=== PATIENT | male | born 1955 | race Caucasian/White ===

== ENCOUNTER 2023-10-27 09:06 | Emergency (ER) | payer OTHER, SELFPAY ==
[2023-10-27 09:27] VITALS: BP 186/103; PULSE 79; RESP 16; TEMP 36.6; O2SAT 98
--- NOTE | 2023-10-27 09:44 | ED.CHESTPAIN ---
HPI - Chest Pain General Chief Complaint: Chest Pain Stated Complaint: Chest/Back Pain Source: patient, RN notes reviewed and old records reviewed Mode of arrival: ambulatory Limitations: no limitations History of Present Illness HPI narrative: 68-year-old male patient presents to [facility] with complaints of chest pain radiating into left arm and back that started at 2:00 a.m. this morning. Patient states pain woke him from sleep. Patient states has history of high blood pressure denies any other cardiac issues. patient states is unsure if he has shortness of breath or dizziness states pain was too bad to notice anything else. Patient states pain is only in back and shoulder at this time. Related Data Home Medications Medication Instructions Recorded Confirmed clonidine HCl 0.1 mg tablet 0.1 mg PO DIRECTED 10/27/23 10/27/23 diltiazem HCl 240 mg capsule,24 240 mg PO DAILY 10/27/23 10/27/23 hr,extended release doxazosin 2 mg tablet 2 mg PO DIRECTED 10/27/23 10/27/23 famotidine 40 mg tablet 40 mg PO DAILY 10/27/23 10/27/23 fluoxetine 20 mg tablet 20 mg PO BID 10/27/23 10/27/23 lamotrigine 100 mg tablet 100 mg PO DAILY 10/27/23 10/27/23 lisinopril 20 1 tablet PO DAILY 10/27/23 10/27/23 mg-hydrochlorothiazide 12.5 mg tablet Allergies Allergy/AdvReac Type Severity Reaction Status Date / Time No Known Allergies Allergy Verified 10/27/23 10:16 Review of Systems Constitutional: Constitutional: Reports no additional constitutional complaints, Denies body ache(s), Denies chills, Denies fatigue, Denies fever(s) and Denies headache(s) Eyes: Eyes: Reports no additional eye complaints and Denies blurry vision ENT: Reports system reviewed and no additional complaints, except as documented, Denies vertigo, Denies dizziness, Denies ear discharge, Denies otalgia, Denies facial pain, Denies headache(s), Denies nasal congestion, Denies nasal discharge, Denies sinus pain, Denies sinus pressure and Denies sore throat Cardiovascular: Cardiovascular: Reports no additional cardiovascular complaints, Reports chest pain, Reports chest pain at rest, Denies rapid heart rate, Reports radiating jaw, neck or arm pain and Denies dyspnea Respiratory: Respiratory: Reports no additional respiratory complaints, Denies chest congestion, Denies cough, Denies pain on inspiration, Denies pain with cough and Denies dyspnea Gastrointestinal: Gastrointestinal: Denies abdominal pain, Denies diarrhea, Denies nausea and Denies vomiting Musculoskeletal: Musculoskeletal: Reports back pain Integumentary/Breasts: Skin/Breast: Denies rash Neurologic: Reports system reviewed and no additional complaints, except as documented, Denies vertigo, Denies dizziness and Denies headache(s) Endocrine: Endocrine: Denies fatigue PMFSH Past Medical History Medical History Hypertension Comments At the time of my signature, I reviewed and agree with the nursing past medical, surgical, social, and family history. There is no relevant family history pertinent to the patient complaint. Exam Const: General: cooperative, no acute distress and well nourished Nutritional Appearance: well nourished Orientation/consciousness: patient oriented x3 Limitations: no limitations HENMT: Head: normal to inspection and normocephalic Ears: external ears normal Face/Nose/Sinus: normal facial exam Face and sinus: normal facial exam Mouth: Yes Normal oral and palatal mucosa present, Yes oropharynx normal and Yes moist mucous membranes Eyes: General: appearance normal, both eyes and all related structures Sclera: sclerae normal Pupils: Equal, round and reactive pupils present Chest: Chest palpation & inspection: normal inspection of the chest Resp: Effort & Inspection: normal respiratory effort, able to speak in complete sentences, no audible wheezes, no cough, no respiratory distress and no retractions Auscultation:
--- NOTE | 2023-10-27 09:48 | ECG_ITS ---
Measurements Intervals [place] Rate: 79 P: 42 AK: 163 QRS: 31 QRSD: 87 T: 22 QT: 378 QTc: 435 Interpretive Statements SINUS RHYTHM FREQUENT VENTRICULAR PREMATURE COMPLEXES NONSPECIFIC ST-T WAVE ABNORMALITY- DIFFUSE LEADS BASELINE ARTIFACT- I, II, III, AVR, AVL, AVF BORDERLINE ECG NO PREVIOUS ECG AVAILABLE FOR COMPARISON Electronically Signed On 10-27-2023 16:35:16 CDT by Boubacar King D.O.
== END 2023-10-27 09:55 | disposition short-term general hospital (02) ==
PROVIDERS: Emergency Provider Registered Nurse
DX: R07.9 Chest pain, unspecified (principal); I10 Essential (primary) hypertension
CPT/HCPCS: 93005; 99215; G0463

== ENCOUNTER 2023-10-27 10:22 | Observation (INO) | payer OTHER, SELFPAY ==
[2023-10-27] VITALS (21 sets, daily range): BP systolic 101–197; BP diastolic 69–121; PULSE 61–88; RESP 12–21; TEMP 36.3–36.8; O2SAT 96–100; BMI 32.5
--- NOTE | ~2023-10-27 | XR_ITS ---
XR chest 1V portable DATE: 10/27/2023 11:09 INDICATION: Mid to left-sided chest pain, left shoulder pain. History of hypertension. TECHNIQUE: Upright portable AP chest on 10/27/2023 1101 hours COMPARISON: None FINDINGS: Heart size appears within normal range. Mild aortic unfolding. No pulmonary consolidation, pleural effusion or pneumothorax. Mild thoracic levoscoliosis. Osteopenia. IMPRESSION: No active cardiopulmonary disease is detected on this limited single portable view Reviewed, dictated and finalized at location A. IMPRESSION: No active cardiopulmonary disease is detected on this limited singl e portable view
--- NOTE | 2023-10-27 10:33 | ECG_ITS ---
Measurements Intervals [place] Rate: 71 P: 59 LA: 167 QRS: 40 QRSD: 90 T: 32 QT: 384 QTc: 418 Interpretive Statements SINUS RHYTHM NONSPECIFIC ST-T WAVE ABNORMALITY- ANTEROLAT/INF LEADS BORDERLINE ECG COMPARED TO ECG 10/27/2023 08:36:51 NO SIGNIFICANT CHANGES Electronically Signed On 10-27-2023 16:43:03 CDT by Boubacar King D.O.
--- NOTE | 2023-10-27 10:36 | ED.CHESTPAIN ---
HPI - Chest Pain General Chief Complaint: Chest Pain <Sara Lopez PA-C - Last Filed: 10/27/23 13:14> Stated Complaint: shoulder/chest <Sara Lopez PA-C - Last Filed: 10/27/23 13:14> Time Seen by Provider: 10/27/23 10:26 <Sara Lopez PA-C - Last Filed: 10/27/23 13:14> History of Present Illness HPI narrative: 68-year-old male with history of hypertension presents to the emergency department via EMS from a local urgent care for chest pain that started at 2:00 a.m. this morning. Patient states the chest pain woke him up from his sleep and radiates to his left shoulder, Left arm and back near his left scapula. He describes the pain is deep and sharp. States that earlier the pain was improved when he flexed his neck and put his chin on his chest, however that is no longer improving his pain. Otherwise denies aggravating or alleviating factors. He reports associated nausea but denies associated dyspnea, diaphoresis or vomiting. states he took naproxen and a muscle relaxer at home without improvement. Denies lower extremity edema, cough or congestion. States he is currently not having pain in his chest but is still having pain in his shoulder and arm. He denies injury or trauma to these areas. He denies prior history of cardiac disease or stroke, denies family history of cardiac disease or stroke. Reports former smoking history, he has not smoked in 10 years. Denies prior history of VTE. He received 4 mg of morphine en route to the emergency department but has not received aspirin. <Sara Lopez PA-C - Last Filed: 10/27/23 13:14> Related Data Home Medications: Home Medications Medication Instructions Recorded Confirmed clonidine HCl 0.1 mg tablet 0.1 mg PO DIRECTED PRN 10/27/23 10/27/23 Hypertension diltiazem HCl 240 mg capsule,24 240 mg PO DAILY 10/27/23 10/27/23 hr,extended release doxazosin 2 mg tablet 2 mg PO DAILY 10/27/23 10/27/23 famotidine 40 mg tablet 40 mg PO DAILY 10/27/23 10/27/23 fluoxetine 20 mg tablet 40 mg PO DAILY 10/27/23 10/27/23 lamotrigine 100 mg tablet 100 mg PO DAILY 10/27/23 10/27/23 lisinopril 20 1 tablet PO DAILY 10/27/23 10/27/23 mg-hydrochlorothiazide 12.5 mg tablet <Sara Lopez PA-C - Last Filed: 10/27/23 13:14> Allergies/Adverse Reactions: Allergies Allergy/AdvReac Type Severity Reaction Status Date / Time No Known Allergies Allergy Verified 10/27/23 15:30 <Sara Lopez PA-C - Last Filed: 10/27/23 13:14> Review of Systems Review of Systems: CONSTITUTIONAL: Denies fever, chills, or sweats. EYES: Denies visual changes, redness, or discharge. ENT: Denies rhinorrhea, congestion, sore throat, or otalgia. CARDIOVASCULAR: See HPI RESPIRATORY: Denies cough or dyspnea. GASTROINTESTINAL: Denies abdominal pain, nausea, vomiting, or diarrhea. GENITOURINARY: Denies dysuria or hematuria. SKIN: Denies rash or itching. MUSCULOSKELETAL: Denies back pain, joint pain, or myalgia. NEUROLOGIC: Denies headache, numbness, or weakness. PSYCHIATRIC: Denies anxiety or depression. <Sara Lopez PA-C - Last Filed: 10/27/23 13:14> [facility] Past Medical History Medical History: Medical History Hypertension <Sara Lopez PA-C - Last Filed: 10/27/23 13:14> Social History Social History: Social History Smoking status: Former smoker Alcohol intake: current Drinks per week: 1 Substance use: never Do You Feel Safe in your Home?: Yes Lack of Transportation: No Lack of Food: Never True Current Housing: I Have Housing Concerned About Future Housing: No Difficulty Paying Gas/Electric Bills: No Difficulty Paying for Meds: No Currently Unemployed: No Education: High School Diploma/GED Difficulty w/ Childcare or Family Care: No Spiritual care concerns: No <
[2023-10-27] MEDS: ASPIRIN 81 MG CHEWABLE TABLET 324 MG PO (10:50)
[2023-10-27 10:58] LABS: Basophils Percent Auto 0.5 % (0.2-1.2); Eosinophils Absolute Auto 0.1 K/mm3 (0-0.3); Eosinophils Percent Auto 0.7 % (0-4.4); Hematocrit 39.2 % (42.0-52.0); Hemoglobin 12.5 g/dL (14.0-18.0); Immature Granulocyte Absolute 0.02 K/mm3 (0.00-0.031); Immature Granulocyte Percent A 0.2 % (0-0.5); Lymphocytes Absolute Auto 1.44 K/mm3 (0.9-3.2); Lymphocytes Percent Auto 16.3 % (18.3-44.2); Mean Corpuscular HGB Conc 31.9 g/dl (32-36); Mean Corpuscular Hemoglobin 26.5 pg (26-34); Mean Corpuscular Volume 83.1 fl (80-100); Mean Platelet Volume 10.5 fl (7.4-10.4); Monocytes Absolute Auto 0.8 K/mm3 (0.1-0.6); Monocytes Percent Auto 8.9 % (2.6-8.5); Neutrophils Absolute Auto 6.5 K/mm3 (1.3-6.7); Neutrophils Percent Auto 73.4 % (45.5-73.1); Platelet Count Result 274 k/mm3 (150-375); Red Blood Count 4.72 M/mm3 (4.6-6.20); Red Cell Distribution Width 13.9 % (11.5-14.5); White Blood Count 8.9 K/mm3 (4.5-10.0)
[2023-10-27 11:02] LABS: Alanine Aminotransferase 18 U/L (6-50); Alkaline Phosphatase 100 U/L (38-126); Anion Gap 5 mmol/L (4-12); Aspartate Amino Transferase 20 U/L (17-59); Bilirubin,Total 0.6 mg/dL (0.2-1.3); Blood Urea Nitrogen 14 mg/dL (9-20); Calcium 8.8 mg/dL (8.4-10.2); Carbon Dioxide 26 mmol/L (22-30); Chloride 109 mmol/L (98-107); Estimated CRCL calculation 80 ml/min; Estimated Glomerular Filt Rate > 60; Glucose 115 mg/dL (65-110); Lipase 58 U/L (23-300); Potassium 3.9 mmol/L (3.4-5.0); Sodium 140 mmol/L (137-145)
[2023-10-27 11:10] LABS: NT Pro B Type Natriuretic Pept 548 pg/mL (19.9-100)
[2023-10-27 11:13] LABS: Troponin I < 0.012 ng/mL (0.000-0.034)
[2023-10-27 11:17] LABS: Partial Thromboplastin Time 25.6 Seconds (22.3-36.8); Prothrombin Time 13.1 Seconds (11.1-14.7)
[2023-10-27 11:22] LABS: D Dimer 0.45 ug/mL (<0.48)
[2023-10-27] MEDS: NITROGLYCERIN SL 0.4 MG TABLET SUBLINGUAL (12:25)
[2023-10-27] MEDS: CYCLOBENZAPRINE HCL 10 MG TABLET PO (13:06)
[2023-10-27] MEDS: SODIUM CHLORIDE 0.9% IV 1,000 ML 999 ML IV CONT (13:06)
[2023-10-27] MEDS: ACETAMINOPHEN 500 MG TABLET 1000 MG PO (13:06)
--- NOTE | 2023-10-27 13:31 | ECG_ITS ---
Measurements Intervals [place] Rate: 65 P: 2 ME: 124 QRS: 39 QRSD: 96 T: 19 QT: 397 QTc: 415 Interpretive Statements SINUS RHYTHM NONSPECIFIC ST-T WAVE ABNORMALITY- ANT/INF LEADS BASELINE ARTIFACT- V1-V3 BORDERLINE ECG COMPARED TO ECG 10/27/2023 10:37:08 NO SIGNIFICANT CHANGES Electronically Signed On 10-27-2023 16:59:20 CDT by Boubacar King D.O.
[2023-10-27 13:55] LABS: Troponin I < 0.012 ng/mL (0.000-0.034)
--- NOTE | 2023-10-27 15:21 | ADMGEN ---
This patient, Ghassan Cohen, was admitted to Medical Room 344-01. Patient/family oriented to hospital policies and general routines including ID bracelet, bed and alarms, visiting hours, pain management, procedures, bathroom and other care routines, personal items, smoking policy, room service/diet, and visiting hours. Information on how to activate the Rapid Response Team has been discussed. Patient/Family are encouraged to report perceived risks to care and to ask questions if they do not understand what they are told or what they should do.
--- NOTE | 2023-10-27 17:10 | PM.IMHP ---
H&P: HPI History of Present Illness Date/Time: 10/27/23 17:10 Chief Complaint: Chest Pain Narrative: 68 y/o M presents here with chest pain with PMH of HTN and former smoker. Patient presents here via EMS from a local urgent care for further evaluation of chest pain and left shoulder pain. Pain initially started this morning around 2:00 a.m. and woke the patient from his sleep. Describes the chest pain as sharp/deep, radiating into his left shoulder, and constant. Patient took naproxen and muscle relaxer (unknown which one) without any relief. Reports that moving his head around and moving shoulder/RUE through ROM would help somewhat with the discomfort. No aggravating factors identified. No lower extremity swelling, shortness of breath, cough, or congestion. No nausea, vomiting, or diarrhea. No recent trauma or injury to the chest or shoulder. Upon arrival to the emergency department, he was found to be profoundly hypertensive with a blood pressure of 187/105, did not take morning HTN medications. No headache, vision changes, or dizziness. Patient follows with [facility], last visit with them over a year ago. Chest pain has since resolved spontaneously, lasted for a couple of hours, and has not reoccurred. Continued to have discomfort in his left shoulder which is relieved with [place]. Initial VS at presentation: 98.2? F, HR 87, RR 16, 197/105, and 90% on RA. ED workup showed: No leukocytosis, mild anemia, creatinine 1.0, glucose 115, troponin negative x2, and BNP 548. CXR showed no active cardiopulmonary disease. Heart size normal. Review of Systems Review of Systems: All systems reviewed & are unremarkable except as noted in HPI and below [facility] Past Medical History Medical History (Updated 10/27/23 @ 17:18 by Ricarda Zuniga APRN) Hypertension Social History Social History Smoking status: Former smoker Alcohol intake: current Drinks per week: 1 Substance use: never Do You Feel Safe in your Home?: Yes Lack of Transportation: No Lack of Food: Never True Current Housing: I Have Housing Concerned About Future Housing: No Difficulty Paying Gas/Electric Bills: No Difficulty Paying for Meds: No Currently Unemployed: No Education: High School Diploma/GED Difficulty w/ Childcare or Family Care: No Spiritual care concerns: No Meds Home Medications and Allergies Home Medications Medication Instructions Recorded Confirmed Type clonidine HCl 0.1 mg tablet 0.1 mg PO DIRECTED PRN 10/27/23 10/27/23 History Hypertension diltiazem HCl 240 mg capsule,24 240 mg PO DAILY 10/27/23 10/27/23 History hr,extended release doxazosin 2 mg tablet 2 mg PO DAILY 10/27/23 10/27/23 History famotidine 40 mg tablet 40 mg PO DAILY 10/27/23 10/27/23 History fluoxetine 20 mg tablet 40 mg PO DAILY 10/27/23 10/27/23 History lamotrigine 100 mg tablet 100 mg PO DAILY 10/27/23 10/27/23 History lisinopril 20 1 tablet PO DAILY 10/27/23 10/27/23 History mg-hydrochlorothiazide 12.5 mg tablet Allergies Allergy/AdvReac Type Severity Reaction Status Date / Time No Known Allergies Allergy Verified 10/27/23 15:30 Vital Signs Vital Signs - 24 hr 10/27/23 10:19 10/27/23 10:47 10/27/23 11:01 Temperature 98.2 F Pulse Rate 87 74 76 Respiratory Rate 16 14 12 Blood Pressure 197/105 H 146/121 H 120/70 Pulse Oximetry 98 98 96 Oxygen Delivery 10/27/23 11:16 10/27/23 11:31 10/27/23 11:46 Temperature Pulse Rate 74 76 81 Respiratory Rate 15 20 21 H Blood Pressure 142/86 H 143/91 H 168/97 H Pulse Oximetry 98 98 100 Oxygen Delivery 10/27/23 12:16 10/27/23 11:10 10/27/23 11:10 Temperature Pulse Rate 76 77 Respiratory Rate 16 Blood Pressure 159/91 H Pulse Oximetry 97 97 Oxygen Delivery Room Air 10/27/23 12:30 10/27/23 12:32 10/27/23 12:47 Temperature Pulse Rate 75 73 70 Respirator
[2023-10-27] MEDS: PANTOPRAZOLE SODIUM IV 40 MG VIAL IV PUSH (17:43)
[2023-10-27] MEDS: cloNIDine HCL 0.1 MG TABLET PO ×2 (17:43→20:31)
[2023-10-27 17:45] LABS: Troponin I < 0.012 ng/mL (0.000-0.034)
[2023-10-27] MEDS: HYDROcodone/acetaminophen (*CRX) 5-325 MG TABLET 1 TAB PO (21:29)
[2023-10-28] VITALS (7 sets, daily range): BP systolic 123–168; BP diastolic 68–71; PULSE 58–71; RESP 18; TEMP 35.8–36.1; O2SAT 96–99
[2023-10-28 06:14] LABS: Basophils Percent Auto 0.5 % (0.2-1.2); Eosinophils Absolute Auto 0.2 K/mm3 (0-0.3); Hematocrit 39.3 % (42.0-52.0); Hemoglobin 12.3 g/dL (14.0-18.0); Immature Granulocyte Absolute 0.02 K/mm3 (0.00-0.031); Immature Granulocyte Percent A 0.3 % (0-0.5); Lymphocytes Absolute Auto 1.77 K/mm3 (0.9-3.2); Lymphocytes Percent Auto 26.8 % (18.3-44.2); Mean Corpuscular HGB Conc 31.3 g/dl (32-36); Mean Corpuscular Hemoglobin 26.5 pg (26-34); Mean Corpuscular Volume 84.7 fl (80-100); Mean Platelet Volume 10.6 fl (7.4-10.4); Monocytes Absolute Auto 0.7 K/mm3 (0.1-0.6); Monocytes Percent Auto 11.2 % (2.6-8.5); Neutrophils Absolute Auto 3.9 K/mm3 (1.3-6.7); Neutrophils Percent Auto 58.2 % (45.5-73.1); Platelet Count Result 261 k/mm3 (150-375); Red Blood Count 4.64 M/mm3 (4.6-6.20); Red Cell Distribution Width 14.1 % (11.5-14.5); White Blood Count 6.6 K/mm3 (4.5-10.0)
[2023-10-28 06:24] LABS: Alanine Aminotransferase 17 U/L (6-50); Albumin Level 3.5 g/dL (3.5-5.1); Alkaline Phosphatase 88 U/L (38-126); Anion Gap 1 mmol/L (4-12); Aspartate Amino Transferase 19 U/L (17-59); Bilirubin,Total 0.6 mg/dL (0.2-1.3); Blood Urea Nitrogen 16 mg/dL (9-20); Calcium 8.7 mg/dL (8.4-10.2); Carbon Dioxide 30 mmol/L (22-30); Chloride 109 mmol/L (98-107); Cholesterol 169 mg/dL (0-200); Estimated CRCL calculation 80 ml/min; Estimated Glomerular Filt Rate > 60; Glucose 118 mg/dL (65-110); HDL Direct 44 mg/dL; Potassium 4.2 mmol/L (3.4-5.0); Sodium 140 mmol/L (137-145); Triglycerides 117 mg/dL (<150)
[2023-10-28 06:34] LABS: LDL Cholesterol Direct 103 mg/dL
[2023-10-28] MEDS: HYDROcodone/acetaminophen (*CRX) 5-325 MG TABLET 1 TAB PO (06:45)
[2023-10-28 07:40] LABS: Hemoglobin A1C 6.4 % (<5.7)
[2023-10-28] MEDS: ASPIRIN 81 MG ENTERIC TABLET PO (09:41)
[2023-10-28] MEDS: FAMOTIDINE 20 MG TABLET 40 MG PO (09:42)
[2023-10-28] MEDS: lisinopriL 20 MG TABLET PO (09:42)
[2023-10-28] MEDS: dilTIAZem HCL CD 240 MG CAP.24HR PO (09:42)
[2023-10-28] MEDS: FLUoxetine HCL 20 MG CAPSULE 40 MG PO (09:43)
[2023-10-28] MEDS: PANTOPRAZOLE SODIUM IV 40 MG VIAL IV PUSH (09:44)
[2023-10-28] MEDS: lamoTRIgine 100 MG TABLET PO (09:44)
[2023-10-28] MEDS: DOXAZOSIN MESYLATE 2 MG TABLET PO (09:44)
--- NOTE | 2023-10-28 10:02 | PM.IMPN ---
Progress Note: A&P Assessment and Plan (1) Hypertension: Code(s): I10 - Essential (primary) hypertension Status: Acute (2) Chest pain: Qualifiers: Chest pain type: unspecified Qualified Code(s): R07.9 - Chest pain, unspecified Code(s): R07.9 - Chest pain, unspecified Status: Acute Plan (1) Chest pain: ?Qualifiers: ?Chest pain type:?unspecified? Qualified Code(s):?R07.9 - Chest pain, unspecified ?Code(s): R07.9 - Chest pain, unspecified ?Status:?Acute ?Assessment and Plan: - EKG, initial:? Sinus rhythm, frequent PVCs, nonspecific ST-T-wave abnormality diffuse leads, baseline artifact.? No previous available for comparison. - EKG, repeat (1):? Sinus rhythm, nonspecific ST-T-wave abnormality anterolateral leads and inferior leads, borderline EKG.? When compared to EKG done previously today, there are no significant changes. - EKG, repeat (2): - Troponin: <0.012 x3 - CXR: no active cardiopulmonary disease, heart size normal, mild aortic on folding, thoracic levoscoliosis, osteopenia. - ASA 324 given, continue ASA 81 daily - SL nitro PRN - start pantoprazole IVP - BNP 548 - cardiology consulted, awaiting recs - HEART score 4 - no previous echo on file - add lipid panel and A1C - telemetry monitoring (2) Hypertension: ?Code(s): I10 - Essential (primary) hypertension ?Status:?Acute ?Assessment and Plan: - chronic, currently 196/92 - continue home medications: clonidine 0.1 mg t.i.d., lisinopril-HCTZ 20/12.5 mg daily - monitor continue lisinopril 20 mg daily p.o., increase hydrochlorothiazide 25 mg daily p.o.,10/27 Subjective Date/time seen: 10/28/23 10:02 Exam Narrative: GENERAL: Pleasant, in no acute distress. Well-nourished. - EYES: EOMI. Anicteric. - HENT: Moist mucous membranes. - LUNGS: Clear to auscultation bilaterally, no wheezing, rhonchi, or rales. - CARDIOVASCULAR: Regular rate and rhythm. No murmur. No JVD. - ABDOMEN: Soft, non-tender and non-distended. No palpable masses. - EXTREMITIES: No edema. Peripheral pulses 2+. Non-tender. - NEUROLOGIC: No focal neurological deficits. CN II-XII grossly intact. - PSYCHIATRIC: Awake, Alert and oriented x 3. Appropriate mood and affect. - SKIN: No rashes or lesions. Warm. - LYMPH: No cervical lymphadenopathy. Objective Data Vital Signs Vital Signs: Vital Signs - 24 hr 10/27/23 10:19 10/27/23 10:47 10/27/23 11:01 Temperature 98.2 F Pulse Rate 87 74 76 Respiratory Rate 16 14 12 Blood Pressure 197/105 H 146/121 H 120/70 Pulse Oximetry 98 98 96 Oxygen Delivery 10/27/23 11:16 10/27/23 11:31 10/27/23 11:46 Temperature Pulse Rate 74 76 81 Respiratory Rate 15 20 21 H Blood Pressure 142/86 H 143/91 H 168/97 H Pulse Oximetry 98 98 100 Oxygen Delivery 10/27/23 12:16 10/27/23 11:10 10/27/23 11:10 Temperature Pulse Rate 76 77 Respiratory Rate 16 Blood Pressure 159/91 H Pulse Oximetry 97 97 Oxygen Delivery Room Air 10/27/23 12:30 10/27/23 12:32 10/27/23 12:47 Temperature Pulse Rate 75 73 70 Respiratory Rate 16 16 Blood Pressure 114/71 101/69 142/90 H Pulse Oximetry 96 97 Oxygen Delivery 10/27/23 13:00 10/27/23 13:31 10/27/23 13:46 Temperature Pulse Rate 69 71 65 Respiratory Rate 16 17 17 Blood Pressure 129/92 H 163/94 H 158/104 H Pulse Oximetry 96 99 98 Oxygen Delivery 10/27/23 13:47 10/27/23 15:37 10/27/23 16:00 Temperature 97.9 F Pulse Rate 66 88 61 Respiratory Rate 19 16 Blood Pressure 196/92 H Pulse Oximetry 97 98 Oxygen Delivery 10/27/23 19:38 10/27/23 20:00 10/27/23 20:00 Temperature 97.3 F L Pulse Rate 75 75 65 Respiratory Rate 18 18 Blood Pressure 164/90 H Pulse Oximetry 98 98 Oxygen Delivery Room Air 10/27/23 22:26 10/27/23 21:00 10/28/23 00:00 Temperature 97.3 F L Pulse Rate 65 71 Respiratory Rate 16 Blood Pressure Pulse Oximetry 98 Oxygen Delive
--- NOTE | 2023-10-28 14:45 | PM.DS ---
DS: Admitting Diagnosis Discharge Date 10/28/23 Admitting Diagnosis Chest and shoulder pain DS: Discharge Diagnosis Discharge Diagnosis (1) Hypertension: Code(s): I10 - Essential (primary) hypertension Status: Acute (2) Chest pain: Qualifiers: Chest pain type: unspecified Qualified Code(s): R07.9 - Chest pain, unspecified Code(s): R07.9 - Chest pain, unspecified Status: Acute (3) Left shoulder pain: Code(s): M25.512 - Pain in left shoulder Status: Acute DS: Summary Hospital Course Reason for hospitalization: 68yo male with HTN here for chest and shoulder pain. Please see H&P for details. Hospital Course: Patient was hemodynamically stable on admisison. Intial EKG showing sinus rhythm, frequent PVCs, nonspecific ST-T-wave abnormality diffuse leads, baseline artifact.? No previous available for comparison. Repeat EKG unchanged. Troponin was <0.012 x 3. CXR showing no active cardiopulmonary disease, heart size normal, mild aortic on folding, thoracic levoscoliosis, osteopenia. ASA 324 given and continued on ASA 81 daily. Reviewed case with Employee Benefits Manager who felt patient could follow up as outpatient for further evaluation. TChol 169 with LDL 103 and HDL 44. he was having more left shoulder pain then chest pain and he felt he slept oddly in the back of his pickup. He overall did well and was able to be discharged home on 10/28/23. Status at Discharge Cognitive/behavioral status at discharge: stable Time Spent with Patient Time attestation: Total time spent providing and/or coordinating discharge services: 35 minutes Time spent: Greater than 30 minutes Exam Narrative: AF 97.0 123/68 74 16 97% ra Gen - NARD Chest - CTA bilaterally, nml RR CV - RRR S1/S2. Tele showing no significant dysrhythmias Abd - Soft, NT/ND, Positive BS Ext - No pedal edema. slight numbness to the left thenar area. No focal weakness but has some pain with left upper extremity strength exam. 2+ radial. left shoulder ROM intact. Psych - Nml mood and affect Skin - Warm and dry DS: Data Data Completed and Pending Labs on day of discharge: Labs from last 24 hours 10/28/23 10/27/23 05:48 17:19 WBC 6.6 RBC 4.64 Hgb 12.3 L Hct 39.3 L MCV 84.7 MCH 26.5 MCHC 31.3 L RDW 14.1 Plt Count 261 MPV 10.6 H Immature Gran % (Auto) 0.3 Neut % (Auto) 58.2 Lymph % (Auto) 26.8 Jackson % (Auto) 11.2 H Eos % (Auto) 3.0 Baso % (Auto) 0.5 Lymph # (Auto) 1.77 Jackson # (Auto) 0.7 H Eos # (Auto) 0.2 Baso # (Auto) 0.0 Abs Immat Gran (auto) 0.02 Absolute Neuts (auto) 3.9 Absolute Nucleated RBC 0.000 Nucleated RBC % 0.0 Sodium 140 Potassium 4.2 Chloride 109 H Carbon Dioxide 30 Anion Gap 1 L BUN 16 Creatinine 1.00 Estim Creat Clear Calc 80 Estimated GFR > 60 Glucose 118 H Hemoglobin A1c 6.4 H Calcium 8.7 Total Bilirubin 0.6 AST 19 ALT 17 Alkaline Phosphatase 88 Troponin I < 0.012 Total Protein 7.0 Albumin 3.5 Triglycerides 117 Cholesterol 169 LDL Cholesterol Direct 103 HDL Direct 44 Discharge Plan Discharge Attending physician on discharge: Timothy Dickerson Consulting providers: Cayden Morgan Discharging Clinician: Timothy Dickerson Anticipated Discharge Date/Time: 10/28/23 14:56 Patient Disposition: Home, Self-Care Activity: no straining and as tolerated Diet: heart healthy Discharge Instructions: Check blood pressure 1 to 2 times a day. Record and bring into your doctor for review. Call your doctor if your blood pressure is greater than 180/110. Take precautions to avoid falls. Rise slowly from a lying or sitting position. Pause before standing or walking. Contact your doctor or call 911 and come to the Emergency Room if you have recurrent chest pain, weakness or worsening numbness in the left arm/hand or other worrisome symptoms. Avoid NSAIDs (ibuprof
== END 2023-10-28 16:00 | disposition home or self-care (01) ==
LOC: ANHED 12:46 → ANH3MEDSUR 14:58 → ANH3MED 15:11
PROVIDERS: Student in an Organized Health Care Education/Training Program; Admitting Provider Physician Assistant; Emergency Provider Physician Assistant; Visit Provider Hospitalist
DX: R07.9 Chest pain, unspecified (principal); I10 Essential (primary) hypertension; M25.512 Pain in left shoulder; M41.34 Thoracogenic scoliosis, thoracic region; M85.80 Other specified disorders of bone density and structure, unspecified site; Z87.891 Personal history of nicotine dependence; F10.90 Alcohol use, unspecified, uncomplicated; Z79.899 Other long term (current) drug therapy
CPT/HCPCS: 36415; 71045; 80053; 80061; 83036; 83690; 83880; 84484; 85025; 85380; 85610; 85730; 93005; 96361; 96374; 96375; 96376; 99285; A9270; C9113; G0378; J7030